=== PATIENT | male | born 1960 ===

== ENCOUNTER 2017-07-22 00:47 | Emergency (ER) | payer OTHER ==
[2017-07-22] MEDS ORDERED: TDAP Vaccine 0.5 mL Syr IM ONE (00:58)
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
[2017-07-22 01:20] VITALS: RESP 16
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
[2017-07-22 02:56] VITALS: BP 124/75; PULSE 90; TEMP 98; O2SAT 100
== END 2017-07-22 02:56 | disposition home or self-care (01) ==
LOC: ED 00:47
DX: S01.01XA Laceration without foreign body of scalp, initial encounter (principal); Y08.89XA Assault by other specified means, initial encounter; Y92.89 Other specified places as the place of occurrence of the external cause; Z23 Encounter for immunization

== ENCOUNTER 2017-07-30 08:38 | Emergency (ER) | payer OTHER ==
[2017-07-30 09:34] VITALS: TEMP 98.1; O2SAT 98
[2017-07-30 11:15] VITALS: BP 118/75; PULSE 68; RESP 18
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
== END 2017-07-30 12:24 | disposition home or self-care (01) ==
LOC: ED 08:38
DX: Z48.02 Encounter for removal of sutures (principal)